=== PATIENT | female | born 1990 | race Caucasian/White ===

== ENCOUNTER 2018-05-14 10:21 | Emergency (ER) | payer BC, OTHER ==
[2018-05-14 10:31] VITALS: BP 146/84
--- NOTE | 2018-05-14 10:42 | UC ---
Ear Complaint HPI - HPI Summary HPI Summary: Patient is a 28 y/o female who presents to [facility] c/o sinus pressure since 3 days ago. She states the pressure is mainly in her left ear but sometimes is also in the right. She describes the pain as 5/10 in severity and aching, and radiating into her jaw, producing headaches and migraines. Patient states she is unsure if she has had a fever, but often feels over-heated. She also reports green mucus when blowing her nose in the morning. She denies nasal congestion, sore throat, cough, or chest congestion. Patient also reports she [place] this [place]. PMHx sinus and ear infections. - History of Current Complaint Chief Complaint: UCGeneralIllness Stated Complaint: SINUS COMPLAINT Time Seen by Provider: 05/14/18 10:26 Hx Obtained From: Patient Onset/Duration: Gradual Onset, Still Present Severity Currently: Moderate Pain Intensity: 5 Pain Scale Used: 0-10 Numeric Aggravating Factors: Nothing Related History: Other (Noted In Comments) - [place]imming in [place] - Allergies/Home Medications Allergies/Adverse Reactions: Allergies Allergy/AdvReac Type Severity Reaction Status Date / Time No Known Allergies Allergy Verified 05/14/18 10:31 Home Medications: Home Medications 105/Iron/Folic AC/Dha [Prena 1 True 30-1.4 & 300 mg] 1 mis PO DAILY WITH MEAL 05/14/18 [History Confirmed 05/14/18] PMH/Surg Hx/FS Hx/Imm Hx Cardiovascular History: Other Other Cardiovascular History: NEGATIVE: HTN Respiratory History: Other Other Respiratory History: NEGATIVE: asthma - Surgical History Surgical History: Yes Surgery Procedure, Year, and Place: TONSILLECTOMY/ADENOIDECTOMY [address] [place], [place] - Family History Known Family History: Positive: Other - Skin cancer, NEGATIVE: stroke Negative: Cardiac Disease - Social History Alcohol Use: None Alcohol Amount: 2 GLASSES 3 TIMES WEEKLY Substance Use Type: None Smoking Status (MU): Never Smoked Tobacco Review of Systems Constitutional: Fever - Unsure, Other - NEGATIVE: rash ENT: Ear Ache - L > R, radiating to jaw, Nasal Discharge - Green mucus, Other - NEGATIVE: sore throat, sinus congestion Respiratory: Other - NEGATIVE: cough, chest congestion All Other Systems Reviewed And Are Negative: Yes Physical Exam - Summary Physical Exam Summary: General: well-appearing, no pain distress Skin: warm, color reflects adequate perfusion, dry Head: normal Eyes: EOMI, DAMIEN ENT: rhinorrhea, posterior pharyngeal erythema, mild tenderness of left tragus, left TM is opaque Neck: supple, nontender Respiratory: CTA, breath sounds present Cardiovascular: RRR Abdomen: soft, nontender Bowel: present Musculoskeletal: normal, strength/ROM intact Neurological: sensory/motor intact, A&O x3 Psychological: affect/mood appropriate Triage Information Reviewed: Yes Vital Signs: Initial Vital Signs Temp 98.6 F 05/14/18 10:25 Pulse 64 05/14/18 10:25 Resp 18 05/14/18 10:25 BP 146/84 05/14/18 10:25 Pulse Ox 100 05/14/18 10:25 Vital Signs Reviewed: Yes Ear Complaint Course/Dx - Course Course Of Treatment: DISCUSSED VIRAL VERSES BACTERIAL INFECTION AND THE ROLE OF ANTIBIOTICS. THE PATIENT WISHES TO BE ON ANTIBIOTICS AT THIS TIME. I BELEIVE THE SINUS PRESSURE IS CAUSING THE HEADACHE. WILL TREAT SINUSITIS/OE AND RECOMMENDED SALINE NASAL SPRAY AND STEAM TREATMENTS. F/U PMD; RECHECK SOONER IF WORSE. - Differential Dx/Diagnosis Provider Diagnoses: SINUSITIS. LEFT OTITIS MEDIA Discharge - Sign-Out/Discharge Documenting (check all that apply): Patient Departure - Discharge All imaging exams completed and their final reports reviewed: No Studies - Discharge Plan Condition: Stable Disposition: HOME Prescriptions: Amoxicillin/Clavulanate TAB* [Augmentin TAB 875*] 875 mg PO BID #20 tab Neomyc/Polym/HC 1% OTIC SUSP* [Cortisporin Otic Susp 1%*] 4 drop LEFT EAR QID # 1 btl Patient Education Materials: Sinusitis (ED), Otitis Externa (ED) Forms: *Work Release Referrals: Reg Ortez DO [Primary Care Provider] - Additional Instructions: FOLLOW UP WITH YOUR DOCTOR. GET RECHECKED FOR ANY WORSENING OF YOUR CONDITION OR QUESTIONS OR CONCERNS. - Billing Disposition and Condition Condition: STABLE Disposition: Home - Attestation Statements Document Initiated by Scribe: Yes Documenting Scribe: Zehra Barraza Provider For Whom Scribe is Documenting (Include Credential): Sanford Bond MD Scribe Attestation: IZehra, scribed for Sanford Bond MD on 05/14/18 at 1056. Scribe Documentation Reviewed: Yes Provider Attestation: The documentation as recorded by the scribe, Zehra Barraza accurately reflects the service I personally performed and the decisions made by me, Sanford Bond MD
== END 2018-05-14 10:47 | disposition home or self-care (01) ==
LOC: UCEAST 10:21
DX: J32.9 Chronic sinusitis, unspecified (principal); H66.92 Otitis media, unspecified, left ear
CPT/HCPCS: 99212; G0463

== ENCOUNTER 2018-07-27 09:47 | Inpatient (IN) | payer BC, OTHER ==
[2018-07-27] MEDS ORDERED: Lactated Ringers 1000 ML Bag* 1,000 ML IV ONE (10:19)
[2018-07-27] MEDS ORDERED: Dinoprostone* 10 MG VAG.SUPP VAGINAL ONE ×2 (10:19→23:04)
[2018-07-27 11:00] LABS: ABS Basophils 0 10^3/ul (0-0.2); ABS Eosinophils 0 10^3/ul (0-0.6); ABS Lymphocytes 1.4 10^3/ul (1.0-4.8); ABS Monocytes 0.6 10^3/ul (0-0.8); ABS Neutrophils 7.3 10^3/ul (1.5-7.7); ABS Nucleated RBC 0 10^3/ul; Eosinophil % 0.4 % (0-6); Hematocrit 37 % (35-47); Hemoglobin 12.6 g/dl (12.0-16.0); Lymphocyte % 14.9 % (25-47); Mean Corpuscular HGB Conc 34 g/dl (31-36); Mean Corpuscular Hemoglobin 31 pg (27-31); Mean Corpuscular Volume 93 fL (80-97); Mean Platelet Volume 10.6 fL (7.4-10.4); Nucleated Red Blood Cells % 0; Platelet Count 194 10^3/ul (150-450); Red Blood Count 4.03 10^6/ul (4.00-5.40); Red Cell Distribution Width 14 % (10.5-15); White Blood Count 9.3 10^3/ul (3.5-10.8)
[2018-07-27] MEDS ORDERED: Lactated Ringers 1000 ML Bag* 1,000 ML IV SCH (11:00)
[2018-07-27 11:03] LABS: Urine Appearance Cloudy; Urine Bacteria 3+ (Absent); Urine Bilirubin Negative (Negative); Urine Blood Negative (Negative); Urine Color Yellow; Urine Glucose Negative (Negative); Urine Ketones Trace (Negative); Urine Nitrite Negative (Negative); Urine Protein Negative (Negative); Urine Red Blood Cell 1+(3-5/hpf) (Absent); Urine Specific Gravity 1.015 (1.010-1.030); Urine Urobilinogen Negative (Negative); Urine White Blood Cell 2+(11-20/hpf) (Absent)
--- NOTE | 2018-07-27 11:04 | HP ---
General Information - Reason for Visit Pt sent in from the office for cervical ripening due to continued elevated BP. Previous labs WNL. - General Information Maternal Age: 28 Grav: 1 Para: 0 SAB: 0 IEA: 0 Estimated Due Date: 08/16/18 Determined By: Early Ultrasound Maternal Blood Type and Rh: O Positive - Results this Serology/RPR Result: Non-Reactive Rubella Result: Immune HBsAg Result: Negative HIV Result: Negative GBS Culture Result: Negative Past Medical History Delivery History: See Records - Primiparous Pertinent Past Medical History: See Records - Melanoma on buttocks Pertinent Past Surgical History: See Records - Excision of melanoma, tonsillectomy and adenoidectomy, wisdom tooth extraction Pertinent Family History: See Records - HTN, DM - Antepartal Records Antepartal Records: Reviewed, Complicated by: - gestational HTN Review of Systems Constitutional: Comfortable CV Complaint: No Respiratory: Shortness of Breath: No Gastrointestinal: No Nausea/Vomiting, Normal Bowel Movement Genitourinary: No Dysuria, No Bleeding, No Leaking Fluid Musculoskeletal: No Complaint, No Epigastric Pain Neurological: No Headache, No Visual Changes Movement: Normal Exam Allergies/Adverse Reactions: Allergies No Known Allergies Allergy (Verified 05/14/18 10:31) T-98.1, P-97, R-18, BP 141/101, O2-100% - Measurements Height: 5 ft 5 in Weight: 81.193 kg Weight in lbs: 179.629178 Body Mass Index (BMI): 29.7 Pre- Weight: 70.307 kg Weight Gained This : 24 lbs and 0 ozs - Exam Breast: Breast Exam Deferred CVA: No CVA Tenderness Extremities: Edema - trace pedal edema Heart: Normal Rhythm/Heart Sounds HEENT: No Significant Findings Lungs: Clear Bilaterally Rectal: Rectal Exam Deferred Reflexes: DTR 2+ Thyroid: No Thyromegaly - Abdominal Exam Abdomen Exam: Non-Tender, Fundal Height Consistent with Dates - Ultrasound/Biophysical Profile Ultrasound Status: Not Done Targeted Exam Findings See L&D Outpatient Visit Provider Note for Findings: N/A Estimated Weight: 7# Cervical Exam: Closed Effacement: 80% Station: -2 Presenting Part: Vertex Membrane Status: Intact Bleeding/Discharge: None EFM Findings - External Monitor Findings Baseline Heart Rate: 135 External Monitor Findings: Accelerations Present, No Pattern of Variable or Late Decelerations, Variability Moderate, Baseline Stable Contractions: None Assessment/Plan - Assessment 28 year old at 37 1/7 weeks gestation with HTN vs preeclampsia here for cervical ripening/ IOL. No evidence of acidemia, membranes intact. - Obstetrical Risk Factors Obstetrical Risk Factors: Gestational Hypertension - Plan Plan: Cervical Ripening Plan Comment: Discussed gestational HTN vs preeclampsia with pt and her mother. Discussed rationale for initiating cervical ripening/ IOL. Labs drawn inc CBC, CMP, uric acid, Type and Screen, UA. Cervix not yet favorable for induction, will initiate cervical ripening with Cervidil. Will monitor BPs hourly for first 4 hours, then every 4 hours if stable. EFM per protocol. Pt in agreement with plan of care. - Date/Time of Admission Date of Admission: 07/27/18 Time of Admission: 10:33
[2018-07-27 11:10] LABS: Albumin 3.2 g/dL (3.2-5.2); Albumin/Globulin Ratio 1.3 (1-3); BUN/Creatinine Ratio 17.2 (8-20); Calcium 8.5 mg/dL (8.6-10.3); EGFR Non-African American 124.7 (>60); Globulin 2.5 g/dL (2-4); Potassium 3.9 mmol/L (3.5-5.0); Total Bilirubin 0.2 mg/dL (0.2-1.0); Total Protein 5.7 g/dL (6.4-8.9); Uric Acid 5.6 mg/dL (2.3-6.6)
--- NOTE | 2018-07-27 19:46 | PN ---
Progress Note - Progress Note Date of Service: 07/27/18 SOAP: Subjective: [Pt reports she is feeling comfortable, notices occasional "tightening," but does not feel ctx. Reports active FM. Denies headache. Denies vision changes. ] Objective: [Lab results within normal limits. Urine negative for protein. BPs range from 124/ 76 to 143/101 on arrival. None that elevated since initial BP taken. FHR Cat I (baseline 135, + accelerations, no decelerations, moderate variability ). Membranes intact. Ctx Q 2-3 minutes, lasting approx 40 seconds, mild. Sodium 136 mmol/L (135-145) 07/27/18 10:00 Potassium 3.9 mmol/L (3.5-5.0) 07/27/18 10:00 BUN 10 mg/dL (6-24) 07/27/18 10:00 Creatinine 0.58 mg/dL (0.51-0.95) 07/27/18 10:00 Calcium 8.5 mg/dL (8.6-10.3) L 07/27/18 10:00 AST 17 U/L (13-39) 07/27/18 10:00 ALT 14 U/L (7-52) 07/27/18 10:00 07/27/18 07/27/18 07/27/18 10:00 10:00 10:00 WBC RBC Hgb Hct MCV MCH MCHC RDW Plt Count MPV Neut % (Auto) Lymph % (Auto) Jasper % (Auto) Eos % (Auto) Baso % (Auto) Absolute Neuts (auto) Absolute Lymphs (auto) Absolute Monos (auto) Absolute Eos (auto) Absolute Basos (auto) Absolute Nucleated RBC Nucleated RBC % Sodium 136 Potassium 3.9 Chloride 107 Carbon Dioxide 21 L Anion Gap 8 BUN 10 Creatinine 0.58 Est GFR ( Amer) 150.9 Est GFR (Non-Af Amer) 124.7 BUN/Creatinine Ratio 17.2 Glucose 85 Uric Acid 5.6 Calcium 8.5 L Total Bilirubin 0.20 AST 17 ALT 14 Alkaline Phosphatase 154 H Total Protein 5.7 L Albumin 3.2 Globulin 2.5 Albumin/Globulin Ratio 1.3 Urine Color Yellow Urine Appearance Cloudy Urine pH 6.0 Ur Specific Happy 1.015 Urine Protein Negative Urine Ketones Trace A Urine Blood Negative Urine Nitrate Negative Urine Bilirubin Negative Urine Urobilinogen Negative Ur Leukocyte Esterase 3+ A Urine WBC (Auto) 2+(11-20/hpf) A Urine RBC (Auto) 1+(3-5/hpf) A Ur Squamous Epith Cells Present A Urine Bacteria 3+ A Urine Glucose Negative Blood Type O Positive Antibody Screen Negative 07/27/18 10:00 WBC 9.3 RBC 4.03 Hgb 12.6 Hct 37 MCV 93 MCH 31 MCHC 34 RDW 14 Plt Count 194 MPV 10.6 H Neut % (Auto) 78.1 Lymph % (Auto) 14.9 L Jasper % (Auto) 6.4 Eos % (Auto) 0.4 Baso % (Auto) 0.2 Absolute Neuts (auto) 7.3 Absolute Lymphs (auto) 1.4 Absolute Monos (auto) 0.6 Absolute Eos (auto) 0 Absolute Basos (auto) 0 Absolute Nucleated RBC 0 Nucleated RBC % 0 Sodium Potassium Chloride Carbon Dioxide Anion Gap BUN Creatinine Est GFR ( Amer) Est GFR (Non-Af Amer) BUN/Creatinine Ratio Glucose Uric Acid Calcium Total Bilirubin AST ALT Alkaline Phosphatase Total Protein Albumin Globulin Albumin/Globulin Ratio Urine Color Urine Appearance Urine pH Ur Specific Happy Urine Protein Urine Ketones Urine Blood Urine Nitrate Urine Bilirubin Urine Urobilinogen Ur Leukocyte Esterase Urine WBC (Auto) Urine RBC (Auto) Ur Squamous Epith Cells Urine Bacteria Urine Glucose Blood Type Antibody Screen ] Assessment: [28 year old at 37 1/7 weeks gestation undergoing cervical ripening for gestational hypertension without proteinuria. No evidence of acidemia. BPs stable. ] Plan: [Will continue with cervical ripening until it has been 12 hours or active labor ensues. At that time will evaluate whether to do more ripening overnight, or rest and start Pitocin in the morning. ]
[2018-07-27] MEDS ORDERED: Acetaminophen TAB* 325 MG PO ONE (23:04)
[2018-07-27] MEDS ORDERED: diPHENhydraMINE PO* 50 MG PO ONE (23:06)
--- NOTE | 2018-07-27 23:54 | PN ---
Progress Note - Progress Note Date of Service: 07/27/18 SOAP: Subjective: [Pt reports headache, denies vision changes. Pt unaware of ctx. Reports active FM.] Objective: [Cervical exam: Fingertip, 80%/ -2/ soft/ vtx BP- 136/87 FHR Cat I Ctx Q 2-4 minutes on monintor, mild per palpation, imperceptible by pt.] Assessment: [28 year old with gestational HTN, undergoing cervical ripening/ IOL. BPs stable, no evidence of acidemia. Cervix more favorable than before cervidil, still needs more ripening. ] Plan: [Will place second Cervidil overnight. Benadryl and Tylenol ordered for headache and to assist with sleep. Pt encouraged to rest. BPs and FHR auscultation Q 4 hrs while awake. ]
--- NOTE | 2018-07-28 11:05 | PN ---
Progress Note - Progress Note Date of Service: 07/28/18 Note: S: Pt resting comfortably. No strong UCs. Denies STEVENS. No visual changes. No RUQ pain. Reports active FM. O: BP 133/88 HR 84 T 97.6 FHT 135bpm. Mod variability. +Accels. No decels UCs mild. Pt just going on the monitor now. Will evaluate further after tracing complete VE: Cervidil removed. 1cm/50%/vtx -1. Membranes swept A: IUP at 37-2/7 with gestational hypertension, stable No evidence of metabolic acidemia P: Discussed ongoing options once we evaluate UC pattern including oral misoprostol vs. trial Guerra balloon and IV pitocin. Pt open to either but likes the idea of oral misoprostol better. Will rest x 1 hour and re-eval at that time or sooner PRN.
--- NOTE | 2018-07-28 11:23 | PN ---
Progress Note - Progress Note Date of Service: 07/28/18 Note: Quick Note: UCs pattern very mild q 2-5 min. Ok to proceed with oral misoprostol at 1200. Will also repeat labs to insure they are stable.
[2018-07-28] MEDS ORDERED: Misoprostol TAB* 100 MCG PO ONE (12:00)
[2018-07-28 12:22] LABS: ABS Basophils 0 10^3/ul (0-0.2); ABS Eosinophils 0 10^3/ul (0-0.6); ABS Lymphocytes 1.6 10^3/ul (1.0-4.8); ABS Neutrophils 9.8 10^3/ul (1.5-7.7); ABS Nucleated RBC 0 10^3/ul; Eosinophil % 0.2 % (0-6); Hematocrit 38 % (35-47); Hemoglobin 12.9 g/dl (12.0-16.0); Mean Corpuscular HGB Conc 34 g/dl (31-36); Mean Corpuscular Hemoglobin 31 pg (27-31); Mean Corpuscular Volume 93 fL (80-97); Mean Platelet Volume 10.9 fL (7.4-10.4); Nucleated Red Blood Cells % 0; Platelet Count 209 10^3/ul (150-450); Red Blood Count 4.12 10^6/ul (4.00-5.40); Red Cell Distribution Width 14 % (10.5-15); White Blood Count 12.4 10^3/ul (3.5-10.8)
[2018-07-28 12:23] LABS: Urine Appearance Clear; Urine Bilirubin Negative (Negative); Urine Blood Negative (Negative); Urine Color Straw; Urine Glucose Negative (Negative); Urine Ketones Negative (Negative); Urine Nitrite Negative (Negative); Urine Protein Negative (Negative); Urine Specific Gravity 1.005 (1.010-1.030); Urine Urobilinogen Negative (Negative)
[2018-07-28] MEDS ORDERED: Promethazine INJ(RESTRICTED)* 25 MG/ML 1 ML VIAL IM ONE (12:30)
[2018-07-28] MEDS ORDERED: Nalbuphine* 10 MG/ML 1 ML VIAL IM ONE (12:30)
[2018-07-28 12:31] LABS: Activated Partial Thrombo Time 29.1 seconds (26.0-36.3); INR 0.78 (0.77-1.02)
[2018-07-28 12:38] LABS: Albumin 3.3 g/dL (3.2-5.2); Albumin/Globulin Ratio 1.2 (1-3); BUN/Creatinine Ratio 18.2 (8-20); Calcium 8.8 mg/dL (8.6-10.3); EGFR Non-African American 132.6 (>60); Globulin 2.7 g/dL (2-4); Potassium 4.1 mmol/L (3.5-5.0); Total Bilirubin 0.2 mg/dL (0.2-1.0)
--- NOTE | 2018-07-28 17:43 | PN ---
Progress Note - Progress Note Date of Service: 07/28/18 Note: S: Pt reported SROM to clear fluid at 1430 which RN confirmed by ROM +. Was able to nap with Nubain and Phenergan but reports UCs much stronger s/p Misoprostol compared to Cervidil x 2. Feeling optimistic about VE O: BP 134/91 HR 87 T 99.4 FHT 130bpm. Moderate variability. +Accels. No decels UCs q 2-4 min, mild to moderate VE: 2cm/80%/vtx -1, clear fluid A: IUP at 37-2/7 with gestational hypertension, labs stable No evidence of metabolic acidemia Ruptured to clear fluid, GBS negative P: Offered repeat dose of oral misoprostol vs. IV pitocin. PARQ both and all ?s answered. Pt and FOB opt for trial of IV pitocin. Aware of pain mgmt options and will request PRN.
[2018-07-28] MEDS ORDERED: Oxytocin in LR* 20 UNITS/1,000 ML BAG IVPB SCH (18:00)
[2018-07-28] MEDS ORDERED: OBEPIDURAL* 250 ML EPIDURAL ONE (19:57)
--- NOTE | 2018-07-28 20:00 | PN ---
Progress Note - Progress Note Date of Service: 07/28/18 Note: S: Pt teary and much more uncomfortable with UCs. Would like to discuss pain mgmt O: BP 136/82 HR 86 T 99.1 FHT 135bpm. Moderate variability. +Accels. No decels UCs q 2 on 4mu/min IV pitocin VE: 2-3/90%/vtx -1, clear fluid A: IUP at 37-2/7 with gestational hypertension, stable No evidence of metabolic acidemia P: Reviewed repeat dose IV pain medication vs. nitrous oxide vs. epdiural analgesia. Pt requests epidural. Anesthesia paged for consult.
[2018-07-28] MEDS ORDERED: fentaNYL* 50 MCG/ML 2 ML VIAL (100 MCG VIAL) ONE (20:23)
[2018-07-28] MEDS ORDERED: Famotidine TAB* 20 MG PO PRN (20:53)
[2018-07-28] MEDS ORDERED: Lactated Ringers 1000 ML Bag* 500 ML IV PRN ×2 (20:53)
[2018-07-28] MEDS ORDERED: Phenylephrine IV* 40 MCG/ML 10 ML SYRINGE IV PUSH PRN ×2 (20:53)
[2018-07-28] MEDS ORDERED: Sodium Citrate/Citric Acid* 15 ML UDC PO PRN (20:53)
[2018-07-28] MEDS ORDERED: Lactated Ringers 1000 ML Bag* 1,000 ML IV ONE (20:53)
[2018-07-28] MEDS ORDERED: Lactated Ringers 1000 ML Bag* 1,000 ML IV SCH ×2 (21:00)
[2018-07-28] MEDS ORDERED: OBEPIDURAL* 250 ML EPIDURAL SCH (21:00)
--- NOTE | 2018-07-28 22:44 | PN ---
Progress Note - Progress Note Date of Service: 07/28/18 Note: S: Pt resting comfortably s/p epidural placement. O: BP 124/83 HR 66 RR 18 T 98.4 FHT 135bpm. Moderate variability. +Accels. Some variable type vs. early decels with UCs UCs q 2-3. IV pitocin at 3mu/min VE: 8-9cm/100%/vtx 0 +caput A: IUP at 37-2/7 with gestational hypertension, stable Category II FHT doubt metabolic acidemia P: Offered maternal position change. Close monitoring of maternal/ status. Anticipate trial of pushing soon
[2018-07-29] MEDS ORDERED: Glycerin ADULT SUPP PR PRN (00:43)
[2018-07-29] MEDS ORDERED: Witch Hazel PAD* JAR TOPICAL PRN (00:43)
[2018-07-29] MEDS ORDERED: Dibucaine 1% 28.35 GM TUBE PR PRN (00:43)
--- NOTE | 2018-07-29 00:59 | PROCNOTE ---
[facility] OB: Delivery Note - Delivery A Date of : 07/29/18 Time of : 00:11 [place] Sex: Female Score 1 Minute: 9 Score 5 Minutes: 9 Gestational Age in Weeks and Days at Delivery: 37 Weeks and 3 Days Delivery Method: Spontaneous Vaginal Labor: Induced - for gestational hypertension Did Patient attempt ?: N/A, No Previous Amniotic Fluid: Clear Estimated Blood Loss: 400 Anesthesia/Analgesia: IM/IV - in early labor, CEI for Labor Anesthesia Comment: Dr. Velazco Delivered By: Yecenia Marlow - Nursery Level of Nursery: Regular/Bedside - Perineum Perineal Injury: 1st Degree - 2cm vaginal lac and right labial split. Both repaired with 3-0 Rapide under local infiltration 1% lidocaine and epidural analgesia Perineal Repair: By Delivering Practioner - Events Delivery Events of Note: Pitocin During Labor - Additional Delivery Notes Additional Delivery Notes: Pt admitted for 37 week induction of labor due to gestational hypertension. Labs stable. Received Cervidil x 2 followed by oral misoprostol x 1 which resulted in spontaneous rupture of membranes to clear fluid. IV pitocin was started which led to onset active labor with expected progression to complete. Length of active phase 4 hours, 39 min. Pushed x 31 min. liveborn female. Slow, controlled delivery of head. OA to VENESSA. Tight nuchal cord x 1. somersaulted through. [place] vigorous with spontaneous cry. HR>110bpm. Delivered to maternal abdomen. Cord clamped x 2 and cut by FOB once pulsations ceased. Spontaneous delivery intact placenta. Membranes complete. Placenta to pathology given history gestational hypertension and SGA infant. Fundus firm to massage but atonic when hand removed. IV pitocin infusing. 800mcg given per rectum x 1. Fundus firm to massage and remained firm. Repair as above. EBL 400mL. At time of note mother and in stable condition. Planning to breast feed.
[2018-07-29] MEDS ORDERED: Lactated Ringers 1000 ML Bag* 1,000 ML IV SCH (01:00)
[2018-07-29] MEDS ORDERED: Misoprostol TAB* 200 MCG PR ONE (01:01)
[2018-07-29] MEDS ORDERED: Misoprostol TAB* 200 MCG ONE (01:21)
[2018-07-29] MEDS: Ibuprofen TAB* 600 MG PO PRN ×4 (05:20→23:38)
[2018-07-29] MEDS ORDERED: Simethicone TAB* 80 MG TAB.CHEW PO SCH (08:30)
[2018-07-29] MEDS: Docusate CAP* 100 MG PO SCH ×3 (09:06→21:28)
[2018-07-29] MEDS: Acetaminophen TAB* 325 MG PO PRN ×3 (11:23→21:28)
[2018-07-30] MEDS: Acetaminophen TAB* 325 MG PO PRN ×3 (05:07→15:51)
[2018-07-30] MEDS: Ibuprofen TAB* 600 MG PO PRN ×3 (05:07→21:27)
[2018-07-30 06:59] LABS: ABS Basophils 0 10^3/ul (0-0.2); ABS Eosinophils 0.1 10^3/ul (0-0.6); ABS Lymphocytes 2.1 10^3/ul (1.0-4.8); ABS Monocytes 0.8 10^3/ul (0-0.8); ABS Neutrophils 6.2 10^3/ul (1.5-7.7); ABS Nucleated RBC 0 10^3/ul; Eosinophil % 1.5 % (0-6); Hematocrit 32 % (35-47); Hemoglobin 10.9 g/dl (12.0-16.0); Lymphocyte % 22.4 % (25-47); Mean Corpuscular HGB Conc 34 g/dl (31-36); Mean Corpuscular Hemoglobin 31 pg (27-31); Mean Corpuscular Volume 93 fL (80-97); Mean Platelet Volume 10.1 fL (7.4-10.4); Nucleated Red Blood Cells % 0.1; Platelet Count 157 10^3/ul (150-450); Red Blood Count 3.46 10^6/ul (4.00-5.40); Red Cell Distribution Width 14 % (10.5-15); White Blood Count 9.2 10^3/ul (3.5-10.8)
[2018-07-30] MEDS: Docusate CAP* 100 MG PO SCH ×3 (08:24→21:27)
[2018-07-30] MEDS ORDERED: Ferrous Gluconate TAB* 324 MG TAB PO SCH (09:00)
--- NOTE | 2018-07-30 12:34 | PTEDU ---
Patient Name: MILIND JOSE JOSEMILIND selected video: Follow Me Mum: The [employer] to Successful to view on 8 at 12:33:00 PM from [id number]
[2018-07-31] MEDS: Docusate CAP* 100 MG PO SCH (08:07)
[2018-07-31] MEDS: Ibuprofen TAB* 600 MG PO PRN (08:07)
[2018-07-31 09:23] VITALS: BP 135/84
== END 2018-07-31 11:37 | disposition home or self-care (01) | DRG 807 ==
LOC: MCHOBOUT 09:47 → MCHOB 10:33
PROVIDERS: ADMIT Midwife; ATTEND Midwife
PROC: 10E0XZZ Delivery of Products of Conception, External Approach (ICD-10-PCS; principal; 2018-07-27)
PROC: 4A1HXCZ Monitoring of Products of Conception, Cardiac Rate, External Approach (ICD-10-PCS; 2018-07-27)
PROC: 3E0P7VZ Introduction of Hormone into Female Reproductive, Via Natural or Artificial Opening (ICD-10-PCS; 2018-07-27)
PROC: 3E033VJ Introduction of Other Hormone into Peripheral Vein, Percutaneous Approach (ICD-10-PCS; 2018-07-27)
PROC: 0UQGXZZ Repair Vagina, External Approach (ICD-10-PCS; 2018-07-27)
PROC: 0HQ9XZZ Repair Perineum Skin, External Approach (ICD-10-PCS; 2018-07-27)
DX: O13.4 Gestational [pregnancy-induced] hypertension without significant proteinuria, complicating childbirth (principal); Z37.0 Single live birth; O71.4 Obstetric high vaginal laceration alone; O69.1XX0 Labor and delivery complicated by cord around neck, with compression, not applicable or unspecified; O76 Abnormality in fetal heart rate and rhythm complicating labor and delivery; O62.2 Other uterine inertia; Z3A.37 37 weeks gestation of pregnancy
CPT/HCPCS: 36415; 59200; 80053; 81003; 81015; 84112; 84550; 85025; 85610; 85730; 86850; 86900; 86901; 87086; 88307; A9270-GY; J2300; J2550; J3010; S0191